=== PATIENT | female | born 1940 | race Caucasian/White ===

== ENCOUNTER 2022-07-17 09:12 | Outpatient (CLI) | payer MEDICARE, BC | END 2022-07-17 09:13 | disposition home or self-care (01) | LOC: BICRAD 09:12 | PROVIDERS: ATTEND Internal Medicine Rheumatology | DX: M54.50 Low back pain, unspecified (principal); M51.36 Other intervertebral disc degeneration, lumbar region; M41.9 Scoliosis, unspecified; Z98.890 Other specified postprocedural states | CPT/HCPCS: 72110 ==

== ENCOUNTER 2025-06-09 17:17 | Inpatient (IN) | payer MEDICARE, BC ==
[2025-06-09 17:54] LABS: #Basophils Less than 0.03 10x3/uL (0.0-0.2); #Eosinophils Less than 0.03 10x3/uL (0.0-0.7); #Monocytes 0.18 10x3/uL (0.11-0.59); #Neutrophils 3.24 10x3/uL (1.40-6.50); %Basophils 0.0 % (0.0-1.0); %Eosinophils 0.0 % (0.0-10.0); %Lymphocytes 8.5 % (21.0-51.0); %Monocytes 4.8 % (0.0-10.0); %Neutrophils 86.4 % (42.0-75.0); Hematocrit 35.5 % (36.0-47.0); Hemoglobin 12.3 g/dL (12.0-16.0); Mean Corpuscular Hemoglobin 32.6 pg (27.0-31.0); Mean Corpuscular Volume 94.2 fL (78.0-98.0); Platelet Count 142 10x3/uL (130-400); Red Blood Cell (RBC) Count 3.77 mill/uL (4.20-5.40); White Blood Cell (WBC) Count 3.75 10x3/uL (4.8-10.8)
[2025-06-09 18:15] LABS: ALT (SGPT) 8 U/L (Less than 34); AST (SGOT) 20 U/L (11-34); Albumin 3.9 g/dL (3.1-4.5); Alkaline Phosphatase 54 U/L (40-110); Anion Gap 17 mmol/L (10-20); BUN (Urea Nitrogen) 10 mg/dL (9.8-20.1); Bilirubin, Total 0.5 mg/dL (0.3-1.2); Calc. Creatinine Clearance 0 mL/min (70-130); Calcium 10.1 mg/dL (7.8-10.44); Carbon Dioxide 16 mmol/L (23-31); Chloride 98 mmol/L (98-107); Globulin 2.8 g/dL (2.4-3.5); Glucose 97 mg/dL (83-110); Potassium 3.9 mmol/L (3.5-5.1); Sodium 127 mmol/L (136-145)
[2025-06-09] MEDS ORDERED: Acetaminophen 325 MG TAB ONE (19:55)
[2025-06-09 20:07] LABS: Troponin I Less than 0.010 ng/mL (< 0.028)
[2025-06-09 20:35] LABS: Bacteria/HPF None Seen HPF (None Seen); CAUTI Indications for Culture < 2yrs of age; Glucose, Urine (Dipstick) Normal (Negative); Leukocyte Negative Leu/uL (Negative); Protein, Urine (Dipstick) Negative (Neg-Trace); RBC/HPF 0-3 HPF (0-3); Specific Gravity, Urine 1.006 (1.002-1.036); WBC/HPF 0-3 HPF (0-3)
[2025-06-09 20:47] LABS: Urine Culture Reflex Yes Yes
[2025-06-09] MEDS ORDERED: hydrALAZINE 20 MG/ML VIAL ONE (21:31)
[2025-06-09] MEDS ORDERED: Ondansetron PF 4 MG/2 ML Vial ONE (22:40)
[2025-06-09] MEDS ORDERED: Ketorolac Tromethamine 30 MG (1 mL) VIAL ONE (22:50)
[2025-06-10] MEDS ORDERED: Ondansetron PF 4 MG/2 ML Vial IVP PRN (00:30)
[2025-06-10 01:05] VITALS: BMI 25.0
[2025-06-10 04:12] LABS: #Basophils Less than 0.03 10x3/uL (0.0-0.2); #Eosinophils Less than 0.03 10x3/uL (0.0-0.7); #Monocytes 0.23 10x3/uL (0.11-0.59); #Neutrophils 2.76 10x3/uL (1.40-6.50); %Basophils 0.3 % (0.0-1.0); %Eosinophils 0.0 % (0.0-10.0); %Lymphocytes 11.2 % (21.0-51.0); %Monocytes 6.8 % (0.0-10.0); %Neutrophils 81.1 % (42.0-75.0); Hematocrit 31.0 % (36.0-47.0); Hemoglobin 10.4 g/dL (12.0-16.0); Mean Corpuscular Hemoglobin 32.7 pg (27.0-31.0); Mean Corpuscular Volume 97.5 fL (78.0-98.0); Platelet Count 162 10x3/uL (130-400); Red Blood Cell (RBC) Count 3.18 mill/uL (4.20-5.40); White Blood Cell (WBC) Count 3.40 10x3/uL (4.8-10.8)
[2025-06-10 04:30] LABS: Anion Gap 13 mmol/L (10-20); BUN (Urea Nitrogen) 8 mg/dL (9.8-20.1); Calc. Creatinine Clearance 82 mL/min (70-130); Calcium 9.4 mg/dL (7.8-10.44); Carbon Dioxide 20 mmol/L (23-31); Chloride 102 mmol/L (98-107); Glucose 94 mg/dL (83-110); Potassium 3.9 mmol/L (3.5-5.1); Sodium 131 mmol/L (136-145)
[2025-06-10] MEDS ORDERED: Acetaminophen 325 MG TAB ONE (06:02)
[2025-06-10] MEDS: Acetaminophen 325 MG TAB PO PRN ×2 (06:06→20:31)
[2025-06-10] MEDS ORDERED: Enoxaparin 40 MG (0.4 mL) SYRINGE ONE (09:02)
[2025-06-10] MEDS ORDERED: Losartan 25 MG TAB ONE ×2 (09:02→12:00)
[2025-06-10] MEDS: Losartan 25 MG TAB PO SCH (09:10)
[2025-06-10] MEDS: Enoxaparin 40 MG (0.4 mL) SYRINGE SC SCH (09:10)
[2025-06-10] MEDS: GUAIFENESIN SF SOLN 200 MG/10 ML UDCUP PO PRN (20:31)
[2025-06-11] MEDS: hydrALAZINE 20 MG/ML VIAL SLOW IVP SCH (06:42)
[2025-06-11 08:45] LABS: #Basophils Less than 0.03 10x3/uL (0.0-0.2); #Eosinophils 0.05 10x3/uL (0.0-0.7); #Monocytes 0.14 10x3/uL (0.11-0.59); #Neutrophils 2.21 10x3/uL (1.40-6.50); %Basophils 0.4 % (0.0-1.0); %Eosinophils 1.8 % (0.0-10.0); %Lymphocytes 12.2 % (21.0-51.0); %Monocytes 5.0 % (0.0-10.0); %Neutrophils 79.5 % (42.0-75.0); Hematocrit 33.0 % (36.0-47.0); Hemoglobin 11.1 g/dL (12.0-16.0); Mean Corpuscular Hemoglobin 33.1 pg (27.0-31.0); Mean Corpuscular Volume 98.5 fL (78.0-98.0); Platelet Count 166 10x3/uL (130-400); Red Blood Cell (RBC) Count 3.35 mill/uL (4.20-5.40); White Blood Cell (WBC) Count 2.78 10x3/uL (4.8-10.8)
[2025-06-11 09:09] LABS: Anion Gap 12 mmol/L (10-20); BUN (Urea Nitrogen) 5 mg/dL (9.8-20.1); Calc. Creatinine Clearance 80 mL/min (70-130); Calcium 9.3 mg/dL (7.8-10.44); Carbon Dioxide 19 mmol/L (23-31); Chloride 106 mmol/L (98-107); Glucose 127 mg/dL (83-110); Potassium 3.4 mmol/L (3.5-5.1); Sodium 134 mmol/L (136-145)
[2025-06-11] MEDS: Aspirin 81 mg Enteric Coated Tablet PO SCH (09:09)
[2025-06-11] MEDS: HYDROcodone/Acetaminophen 5/325 mg Tablet PO PRN (15:04)
[2025-06-12 05:15] LABS: #Basophils Less than 0.03 10x3/uL (0.0-0.2); #Eosinophils 0.08 10x3/uL (0.0-0.7); #Monocytes 0.37 10x3/uL (0.11-0.59); #Neutrophils 1.42 10x3/uL (1.40-6.50); %Basophils 0.8 % (0.0-1.0); %Eosinophils 3.3 % (0.0-10.0); %Lymphocytes 22.4 % (21.0-51.0); %Monocytes 15.0 % (0.0-10.0); %Neutrophils 57.7 % (42.0-75.0); Hematocrit 31.4 % (36.0-47.0); Hemoglobin 10.3 g/dL (12.0-16.0); Mean Corpuscular Hemoglobin 32.1 pg (27.0-31.0); Mean Corpuscular Volume 97.8 fL (78.0-98.0); Platelet Count 146 10x3/uL (130-400); Red Blood Cell (RBC) Count 3.21 mill/uL (4.20-5.40); White Blood Cell (WBC) Count 2.46 10x3/uL (4.8-10.8)
[2025-06-12] MEDS: hydrALAZINE 20 MG/ML VIAL SLOW IVP SCH (05:33)
[2025-06-12 05:40] LABS: ALT (SGPT) Less than 7 U/L (Less than 34); AST (SGOT) 14 U/L (11-34); Albumin 2.9 g/dL (3.1-4.5); Alkaline Phosphatase 45 U/L (40-110); Anion Gap 10 mmol/L (10-20); BUN (Urea Nitrogen) 4 mg/dL (9.8-20.1); Bilirubin, Total 0.4 mg/dL (0.3-1.2); Calc. Creatinine Clearance 90 mL/min (70-130); Calcium 9.0 mg/dL (7.8-10.44); Carbon Dioxide 21 mmol/L (23-31); Chloride 105 mmol/L (98-107); Globulin 2.3 g/dL (2.4-3.5); Glucose 85 mg/dL (83-110); Magnesium 1.6 mg/dL (1.6-2.6); Potassium 3.6 mmol/L (3.5-5.1); Sodium 132 mmol/L (136-145)
[2025-06-12] MEDS: hydrALAZINE 20 MG/ML VIAL SLOW IVP PRN (13:07)
[2025-06-12 16:08] VITALS: BMI 25.0
[2025-06-13 04:46] LABS: #Basophils Less than 0.03 10x3/uL (0.0-0.2); #Eosinophils 0.05 10x3/uL (0.0-0.7); #Monocytes 0.26 10x3/uL (0.11-0.59); #Neutrophils 2.01 10x3/uL (1.40-6.50); %Basophils 0.4 % (0.0-1.0); %Eosinophils 1.8 % (0.0-10.0); %Lymphocytes 16.5 % (21.0-51.0); %Monocytes 9.3 % (0.0-10.0); %Neutrophils 72.0 % (42.0-75.0); Hematocrit 32.8 % (36.0-47.0); Hemoglobin 11.0 g/dL (12.0-16.0); Mean Corpuscular Hemoglobin 32.5 pg (27.0-31.0); Mean Corpuscular Volume 97.0 fL (78.0-98.0); Platelet Count 174 10x3/uL (130-400); Red Blood Cell (RBC) Count 3.38 mill/uL (4.20-5.40); White Blood Cell (WBC) Count 2.79 10x3/uL (4.8-10.8)
[2025-06-13 05:04] LABS: Anion Gap 10 mmol/L (10-20); BUN (Urea Nitrogen) 6 mg/dL (9.8-20.1); Calc. Creatinine Clearance 88 mL/min (70-130); Calcium 9.1 mg/dL (7.8-10.44); Carbon Dioxide 22 mmol/L (23-31); Chloride 102 mmol/L (98-107); Glucose 97 mg/dL (83-110); Potassium 3.7 mmol/L (3.5-5.1); Sodium 130 mmol/L (136-145)
[2025-06-13] MEDS ORDERED: Ondansetron PF 4 MG/2 ML Vial IVP PRN (05:36)
[2025-06-13 06:02] LABS: Magnesium 1.7 mg/dL (1.6-2.6)
[2025-06-13 06:09] LABS: Troponin I 0.011 ng/mL (< 0.028)
[2025-06-13] MEDS: Magnesium 2 GM/50 ML(in water) 2 GM in Premix 1 BAG IVPB SCH (11:03)
[2025-06-13] MEDS: Losartan 25 MG TAB PO SCH (11:54)
[2025-06-13] MEDS: Spironolactone 25 MG TAB PO SCH (13:45)
[2025-06-14 04:51] LABS: Hematocrit 31.6 % (36.0-47.0); Hemoglobin 10.8 g/dL (12.0-16.0); Mean Corpuscular Hemoglobin 33.0 pg (27.0-31.0); Mean Corpuscular Volume 96.6 fL (78.0-98.0); Platelet Count 169 10x3/uL (130-400); Red Blood Cell (RBC) Count 3.27 mill/uL (4.20-5.40); White Blood Cell (WBC) Count 2.60 10x3/uL (4.8-10.8)
[2025-06-14 05:01] LABS: Anion Gap 10 mmol/L (10-20); BUN (Urea Nitrogen) 13 mg/dL (9.8-20.1); Calc. Creatinine Clearance 82 mL/min (70-130); Calcium 9.3 mg/dL (7.8-10.44); Carbon Dioxide 21 mmol/L (23-31); Chloride 104 mmol/L (98-107); Glucose 89 mg/dL (83-110); Magnesium 1.7 mg/dL (1.6-2.6); Potassium 3.5 mmol/L (3.5-5.1); Sodium 131 mmol/L (136-145)
[2025-06-14] MEDS: Spironolactone 25 MG TAB PO SCH (08:32)
[2025-06-14] MEDS: Losartan 25 MG TAB PO SCH (08:34)
[2025-06-14] MEDS ORDERED: Spironolactone 25 MG TAB PO SCH (09:00)
[2025-06-14] MEDS: hydrALAZINE 20 MG/ML VIAL SLOW IVP PRN (23:39)
[2025-06-15 04:49] LABS: Anion Gap 10 mmol/L (10-20); BUN (Urea Nitrogen) 13 mg/dL (9.8-20.1); Calc. Creatinine Clearance 94 mL/min (70-130); Calcium 9.2 mg/dL (7.8-10.44); Carbon Dioxide 23 mmol/L (23-31); Chloride 101 mmol/L (98-107); Glucose 89 mg/dL (83-110); Potassium 3.5 mmol/L (3.5-5.1); Sodium 130 mmol/L (136-145)
[2025-06-15] MEDS ORDERED: Transdermal Patch Removal TOP SCH (21:00)
[2025-06-16] MEDS: Transdermal Patch Removal LIDOCAINE TOP SCH (09:34)
[2025-06-16] MEDS ORDERED: Mag-Al 1200 mg/1200 mg/30 ML UDCUP PO PRN (10:41)
[2025-06-16 11:26] VITALS: BP 157/75; TEMP 98.2
[2025-06-16 12:16] LABS: Sodium 129 mmol/L (136-145)
[2025-06-16] MEDS: Pantoprazole 40 MG DR.TAB PO SCH (12:38)
[2025-06-17] MEDS ORDERED: Pantoprazole 40 MG DR.TAB PO SCH (09:00)
== END 2025-06-16 13:05 | DRG 641 ==
LOC: ERS 17:17 → ERHOLD 06-10 00:18 → 2NO 06-10 14:55
PROVIDERS: ADMIT Internal Medicine; ATTEND Internal Medicine
DX: E87.1 Hypo-osmolality and hyponatremia (principal); I16.0 Hypertensive urgency; I10 Essential (primary) hypertension; E78.5 Hyperlipidemia, unspecified; Z86.16 Personal history of COVID-19; J06.9 Acute upper respiratory infection, unspecified; Z88.8 Allergy status to other drugs, medicaments and biological substances; Z79.82 Long term (current) use of aspirin; Z79.899 Other long term (current) drug therapy; M54.2 Cervicalgia
CPT/HCPCS: 36415; 36416; 70450; 71045; 80048; 80053; 81001; 83735; 83880; 84295; 84484; 85025; 85027; 87086; 93005; 93010; 93306; 94760; 96361; 96374; 96375; 96376; J0360; J1650; J1885; J2405; J7030; Q0162

== ENCOUNTER 2025-09-04 17:28 | Emergency (ER) | payer MEDICARE, BC ==
[~2025-09-04 17:28] MED LIST: Iopamidol-370 76% 500 ML MDV (1 ML CHARGE) ONE
[2025-09-04 18:33] LABS: #Basophils Less than 0.03 10x3/uL (0.0-0.2); #Eosinophils 0.03 10x3/uL (0.0-0.7); #Monocytes 0.33 10x3/uL (0.11-0.59); #Neutrophils 2.68 10x3/uL (1.40-6.50); %Basophils 0.5 % (0.0-1.0); %Eosinophils 0.8 % (0.0-10.0); %Lymphocytes 16.6 % (21.0-51.0); %Monocytes 9.0 % (0.0-10.0); %Neutrophils 72.8 % (42.0-75.0); Hematocrit 35.7 % (36.0-47.0); Hemoglobin 11.5 g/dL (12.0-16.0); Mean Corpuscular Hemoglobin 31.0 pg (27.0-31.0); Mean Corpuscular Volume 96.2 fL (78.0-98.0); Platelet Count 189 10x3/uL (130-400); Red Blood Cell (RBC) Count 3.71 mill/uL (4.20-5.40); White Blood Cell (WBC) Count 3.68 10x3/uL (4.8-10.8)
[2025-09-04 18:49] LABS: INR-International Normal Ratio 1.2; PTT 28.8 sec (22.9-36.1); Prothrombin Time 15.1 sec (12.0-14.7)
[2025-09-04 18:55] LABS: ALT (SGPT) 10 U/L (Less than 34); AST (SGOT) 19 U/L (11-34); Albumin 4.0 g/dL (3.1-4.5); Alkaline Phosphatase 52 U/L (40-110); Anion Gap 11 mmol/L (10-20); BUN (Urea Nitrogen) 25 mg/dL (9.8-20.1); Bilirubin, Total 0.5 mg/dL (0.3-1.2); CK (CPK) 32 U/L (29-168); Calc. Creatinine Clearance 0 mL/min (70-130); Calcium 10.5 mg/dL (7.8-10.44); Carbon Dioxide 24 mmol/L (23-31); Chloride 103 mmol/L (98-107); Globulin 2.6 g/dL (2.4-3.5); Glucose 98 mg/dL (83-110); Magnesium 2.0 mg/dL (1.6-2.6); Potassium 4.6 mmol/L (3.5-5.1); Sodium 133 mmol/L (136-145)
[2025-09-04] MEDS ORDERED: Acetaminophen 500 MG TAB ONE (21:19)
== END 2025-09-04 22:20 | disposition home or self-care (01) ==
LOC: ERS 17:28
DX: R51.9 Headache, unspecified (principal); R29.700 NIHSS score 0; I10 Essential (primary) hypertension
CPT/HCPCS: 70496; 70498; 71045; 80053; 82550; 83605; 83735; 83880; 84146; 84484; 85025; 85610; 85730; 93005; 96360; 96361; 99285; Q9967; 36415